=== PATIENT | male | born 1950 | race Caucasian/White ===

== ENCOUNTER 2023-12-29 10:40 | Emergency (ER) | payer MEDICARE, OTHER, SELFPAY ==
[2023-12-29 10:58] VITALS: BP 127/84; PULSE 94; RESP 20; TEMP 36.9; O2SAT 97; BMI 24.3
--- NOTE | 2023-12-29 11:04 | XR_ITS ---
Examination: PA lateral chest 2 views TECHNIQUE: Upright PA lateral chest 2 views Exam date and time: December 29, 2023 1152 hours INDICATIONS: Chest pain mid abdominal pain today FINDINGS: Normal heart size Lungs are clear. Thoracic moderate spondylosis IMPRESSION: No active disease
--- NOTE | 2023-12-29 11:04 | EKG_ITS ---
[facility] Test Date: 2023-12-29 Pat Name: LEE QUINTERO Department: Room: - Gender: Male Entry Clerk: : 1950 Requested By: Imtiaz Shay (SONNY) Order Number: [id number] Reading MD: Imtiaz Shay (SUBSTATION ENGINEER) Measurements Intervals [place] Rate: 87 P: 63 MA: 180 QRS: -19 QRSD: 87 T: 55 QT: 349 QTc: 421 Interpretive Statements SINUS RHYTHM WITH OCCASIONAL VENTRICULAR PREMATURE COMPLEXES No previous ECG available for comparison /[id number]/S0/[id number].pdf
--- NOTE | 2023-12-29 11:05 | PD.EDRME ---
Rapid Medical Screening Exam RME Arrival date/time: 12/29/23 10:40 73-year-old male presents emergency department complaint of abdominal pain Chief Complaint: Abdominal Pain Time Seen by Provider: 12/29/23 10:57 Vital signs: Vital Signs Temperature 98.5 F 12/29/23 10:58 Pulse Rate 94 12/29/23 10:58 Respiratory Rate 20 12/29/23 10:58 Blood Pressure 127/84 12/29/23 10:58 Pulse Oximetry (%) 97 12/29/23 10:58 Oxygen Delivery Method Room Air 12/29/23 10:58
[2023-12-29 11:31] LABS: Basophils # (Auto) 0.1 Thou/mm3 (0.0-0.2); Basophils % (Auto) 1 % (0-2.5); Eosinophils # (Auto) 0.4 Thou/mm3 (0.0-0.5); Eosinophils % (Auto) 4 % (0-10); Hematocrit 47.1 % (41.0-53.0); Hemoglobin 16.3 g/dL (13.5-16.0); Immature Granulocytes % (Auto) 0 % (0-0); Immature Granulocytes Auto 0.02 Thou/mm3 (0.00-0.00); Lymphocytes # (Auto) 3.1 Thou/mm3 (1.0-4.8); Lymphocytes % (Auto) 31 % (10-50); Mean Corpuscular HGB Conc 34.6 g/dl (31.0-37.0); Mean Corpuscular Hemoglobin 28.8 pg (25.0-35.0); Mean Corpuscular Volume 83 fL (80-100); Monocytes # (Auto) 0.7 Thou/mm3 (0.0-0.8); Monocytes % (Auto) 7 % (0-12); Neutrophils # (Auto) 5.8 Thou/mm3 (1.8-7.7); Neutrophils % (Auto) 57 % (37-80); Nucleated Red Blood Cell % 0 /100 WBC (0); Platelet Count 302 Thou/mm3 (140-440); RDW Standard Deviation 39.8 fL (35.1-43.9); Red Blood Count 5.65 Miln/mm3 (4.50-5.90); White Blood Count 10.1 Thou/mm3 (3.8-10.6)
[2023-12-29 11:44] LABS: Partial Thromboplastin Time 26.8 Seconds (22.0-36.0); Prothrombin Time 10.7 Seconds (9.0-12.2)
[2023-12-29 11:47] LABS: B-Type Natriuretic Peptide < 20 pg/mL (0-100)
[2023-12-29 11:49] LABS: Alanine Aminotransferase 12 U/L (10-49); Albumin, Serum 4.7 gm/dL (3.4-4.8); Albumin/Globulin Ratio 1.9 (1.2-2.2); Alkaline Phosphatase 88 U/L (46-116); Anion Gap 4 (7-16); Aspartate Amino Transferase 13 U/L (0-34); BUN/Creatinine Ratio 20 Ratio (12-20); Bilirubin,Total 1.2 mg/dL (0.3-1.2); Blood Urea Nitrogen 20 mg/dL (9-23); Calcium 10.1 mg/dL (8.3-10.6); Calcium (Corrected) 10.1 mg/dL (8.5-10.1); Carbon Dioxide 27.4 mMol/L (20.0-31.0); Chloride 101 mMol/L (98-107); Estimated Creatinine Clearance 66.9 mL/min (>60); Globulin 2.5 gm/dL (2.3-3.5); Glucose 109 mg/dL (74-106); Lipase 41 U/L (12-53); Osmolality,Calculated 268 (275-295); Potassium 4.6 mMol/L (3.4-5.1); Sodium 132 mMol/L (136-145); Total Protein 7.2 gm/dL (5.7-8.2); Troponin I < 0.020 ng/mL (0.0-0.045); eGFR > 60 See Note
== END 2023-12-29 14:10 | disposition left against medical advice (07) ==
LOC: SERX 12:51
PROVIDERS: Nurse Practitioner Primary Care; Emergency Provider Emergency Medicine
DX: R10.9 Unspecified abdominal pain (principal); I49.3 Ventricular premature depolarization; R07.9 Chest pain, unspecified; Z53.29 Procedure and treatment not carried out because of patient's decision for other reasons
CPT/HCPCS: 36415; 71046; 80053; 80307; 81001; 83690; 83735; 83880; 84484; 85025; 85610; 85730; 93005; 99281

== ENCOUNTER 2023-12-29 23:54 | Emergency (ER) | payer OTHER, SELFPAY ==
[2023-12-29 23:55] VITALS: BMI 24.3
[2023-12-30 00:21] VITALS: BP 150/86; PULSE 106; RESP 18; TEMP 37; O2SAT 97
--- NOTE | 2023-12-30 00:26 | XR_ITS ---
Examination: CT abdomen and pelvis without contrast. Coronal 3-D reconstructions. Sagittal 2-D reconstructions. Date and time of exam:December 30, 2023 0042 hrs. Comparison July 03, 2020 Indications: Onset abdominal pain today CTDI: vol (mGy): 7.23 DLP: (mGycm): 429 Technique: Axial images of the abdomen have been obtained, 3 mm slice thickness Intravenous contrast material has not been administered. Low dose protocols were performed. One or more of the following dose reduction techniques were used; automated exposure control, adjustment of the mA and/or KV according to patient size, use of iterative reconstruction technique. Findings: Benign liver cysts 4 cm masslike area, axial image 47, in the fundus of stomach No biliary tract dilatation No gallstones Spleen not enlarged No pancreatic mass Minimal nodular thickening of both adrenal glands 2 mm lower pole left renal calculus 2 mm lower pole right renal calculus Moderate renal parenchymal scar formation Heavy abdominal aortic calcification Normal appendix No bowel obstruction Colonic diverticulosis, no diverticulitis 8mm left bladder diverticulum with minimal bladder wall thickening AP prostate dimension 3.9 cm Small fat-containing inguinal hernias Advanced degenerative disc disease L5-S1 Impression: 4 cm mass in the fundus of the stomach, recommend endoscopy follow-up to exclude gastric tumor Nonobstructing bilateral renal calculi, no hydronephrosis Normal appendix Minimal bladder wall thickening which could be secondary to prostatomegaly or cystitis, clinical correlation advised
--- NOTE | 2023-12-30 00:27 | PD.EDRME ---
Rapid Medical Screening Exam RME Arrival date/time: 12/29/23 23:54 73-year-old male presents emergency department complaining of diffuse abdominal pain that is been ongoing for several years. Chief Complaint: Abdominal Pain Vital signs: Vital Signs Temperature 98.6 F 12/30/23 00:21 Pulse Rate 106 H 12/30/23 00:21 Respiratory Rate 18 12/30/23 00:21 Blood Pressure 150/86 H 12/30/23 00:21 Pulse Oximetry (%) 97 12/30/23 00:21 Oxygen Delivery Method Room Air 12/30/23 00:21 Vital signs reviewed by provider: Yes
[2023-12-30 01:15] LABS: Basophils # (Auto) 0.1 Thou/mm3 (0.0-0.2); Basophils % (Auto) 1 % (0-2.5); Eosinophils # (Auto) 0.4 Thou/mm3 (0.0-0.5); Eosinophils % (Auto) 4 % (0-10); Hematocrit 46.5 % (41.0-53.0); Hemoglobin 16.1 g/dL (13.5-16.0); Immature Granulocytes % (Auto) 0 % (0-0); Immature Granulocytes Auto 0.03 Thou/mm3 (0.00-0.00); Lymphocytes # (Auto) 2.9 Thou/mm3 (1.0-4.8); Lymphocytes % (Auto) 29 % (10-50); Mean Corpuscular HGB Conc 34.6 g/dl (31.0-37.0); Mean Corpuscular Hemoglobin 28.9 pg (25.0-35.0); Mean Corpuscular Volume 84 fL (80-100); Monocytes # (Auto) 0.7 Thou/mm3 (0.0-0.8); Monocytes % (Auto) 6 % (0-12); Neutrophils # (Auto) 6.1 Thou/mm3 (1.8-7.7); Neutrophils % (Auto) 60 % (37-80); Nucleated Red Blood Cell % 0 /100 WBC (0); Platelet Count 332 Thou/mm3 (140-440); Red Blood Count 5.57 Miln/mm3 (4.50-5.90); White Blood Count 10.2 Thou/mm3 (3.8-10.6)
[2023-12-30 01:30] LABS: Alanine Aminotransferase 12 U/L (10-49); Albumin, Serum 4.5 gm/dL (3.4-4.8); Albumin/Globulin Ratio 1.7 (1.2-2.2); Alkaline Phosphatase 87 U/L (46-116); Anion Gap 3 (7-16); Aspartate Amino Transferase 16 U/L (0-34); BUN/Creatinine Ratio 19 Ratio (12-20); Bilirubin,Total 1.3 mg/dL (0.3-1.2); Blood Urea Nitrogen 23 mg/dL (9-23); Calcium 10.3 mg/dL (8.3-10.6); Calcium (Corrected) 10.3 mg/dL (8.5-10.1); Carbon Dioxide 30.1 mMol/L (20.0-31.0); Chloride 101 mMol/L (98-107); Creatinine (Component) 1.2 mg/dL (0.6-1.3); Estimated Creatinine Clearance 55.8 mL/min (>60); Globulin 2.7 gm/dL (2.3-3.5); Glucose 98 mg/dL (74-106); Lipase 92 U/L (12-53); Osmolality,Calculated 271 (275-295); Potassium 4.5 mMol/L (3.4-5.1); Sodium 134 mMol/L (136-145); Total Protein 7.2 gm/dL (5.7-8.2); eGFR > 60 See Note
--- NOTE | 2023-12-30 02:01 | PC.NURSE ---
PT GOT UPSET WHEN ASKED FOR URINE SAMPLE. PT GOT UP WALKED OUT OF ER AND SAID HE WAS GOING TO LEAVE.
--- NOTE | 2023-12-30 02:27 | PC.NURSE ---
Informed pt we are waiting for a ua sample, pt became upset and shouting at triage nurse IS THAT ALL YOU'RE WAITING FOR? THAT It I'M LEAVING , and was seen walking out of the er,
--- NOTE | 2023-12-30 02:44 | PRELIM_ITS ---
CT scan of the abdomen and pelvis without intravenous contrast (axial sections with sagittal and chevy nal reformats) December 30, 2023 at 0042 hours Clinical History: Abdominal pain Comparison: Reference is made to the prior report dated July 03, 2020. Findings:There is a 1.8 x 1.6 cm cyst in the left lo be of liver (axial image 42/282). Subcentimeter hypodense lesions are noted in the liver, too small t o characterize. There are small nodular calcifications in pancreas, likely due to chronic pancreatiti s. There is mild nodular thickening of bilateral adrenal glands. There are bilateral nonobstructing r enal calculi, the larger measuring 3 mm in lower calyx of the left kidney. Nonspecific perinephric fa t stranding is noted bilaterally. There is left renal cortical scarring. The gallbladder and spleen a re unremarkable on this noncontrast study.There is focal mass like wall thickening in fundus of the s tomach measuring approximately 4 x 3.5 cm. No evidence of bowel obstruction. A moderate amount of fec al material is present in the colon. There are multiple colonic diverticula without evidence of diver ticulitis. The appendix is within normal limits (axial images 142-151/282). The abdominal aorta and i ts branches demonstrates atheromatous calcification without evidence of aneurysm. A few small bladder diverticula are seen. There is [id number] prostatomegaly indenting the urinary bladder base. T he urinary bladder is partially distended and shows mild wall thickening; possibility of cystitis or bladder outlet obstruction cannot be excluded. There is no free fluid or free air. There are small fa t-containing bilateral inguinal hernias. There are small bilateral hydroceles. Degenerative changes a re identified in the spine. The bones are osteopenic.Subpleural scarring is seen in the right lower l obe. A small hiatal hernia is present. There is mild thickening of the distal esophagus, which may be due to reflux esophagitis. Please note that evaluation of soft tissue/vascular structures and bowel loops is limited due to absence of IV and oral contrast. Impression:1. Focal mass like wall thickenin g in fundus of the stomach; possibility of a neoplastic process cannot be excluded. 2. No evidence of bowel obstruction.3. Nonobstructing bilateral renal calculi. No hydroureteronephrosis.4. Mild-to-mod erate prostatomegaly. 5. Partially distended urinary bladder with mild wall thickening; possibility o f cystitis or bladder outlet obstruction cannot be excluded.6. Other findings as described above.Sugg est clinical correlation and follow up accordingly. Report Electronically Signed By: Saul Mendiola i 12/30/2023 2:43:01 AM [EST]
== END 2023-12-30 02:29 | disposition left against medical advice (07) ==
LOC: SERX 12-30 01:24
PROVIDERS: Emergency Provider Emergency Medicine
DX: R10.84 Generalized abdominal pain (principal); Z53.29 Procedure and treatment not carried out because of patient's decision for other reasons
CPT/HCPCS: 36415; 74176; 80053; 80307; 81001; 83690; 85025; 99281